=== PATIENT | male | born 1990 | race Caucasian/White ===

== ENCOUNTER 2018-09-19 13:40 | Emergency (ER) | payer OTHER ==
--- NOTE | 2018-09-19 14:30 | UC ---
General HPI - HPI Summary HPI Summary: is provider in between providers has appointment for 10/20/[address] Kathe lópez checked #[id number] confirmed dose and no aberrant entries. - History of Current Complaint Chief Complaint: UCMedRefill Stated Complaint: PRESCRIPTION REFILL Time Seen by Provider: 09/19/18 13:48 Hx Obtained From: Patient Onset/Duration: Gradual Onset Current Severity: None Pain Intensity: 0 - Allergy/Home Medications Allergies/Adverse Reactions: Allergies Allergy/AdvReac Type Severity Reaction Status Date / Time No Known Allergies Allergy Verified 09/19/18 14:16 Home Medications: Home Medications LORazepam TAB(*) [Ativan 0.5 MG TAB (*)] 1 tab PO ONCE PRN 09/19/18 [History Confirmed 09/19/18] Methylphenidate TAB* [Ritalin TAB*] 1 tab PO ONCE PRN 09/19/18 [History Confirmed 09/19/18] PMH/Surg Hx/FS Hx/Imm Hx Previously Healthy: Yes Psychological History: Anxiety, Other Other Psychological History: Adhd - Surgical History Surgical History: None - Family History Known Family History: Positive: None - Social History Occupation: Student Lives: Alone Alcohol Use: Rare Substance Use Type: Prescribed Smoking Status (MU): Never Smoked Tobacco Review of Systems All Other Systems Reviewed And Are Negative: Yes Constitutional: Positive: Negative Skin: Positive: Negative Eyes: Positive: Negative ENT: Positive: Negative Respiratory: Positive: Negative Cardiovascular: Positive: Negative Gastrointestinal: Positive: Negative Genitourinary: Positive: Negative Motor: Positive: Negative Neurovascular: Positive: Negative Musculoskeletal: Positive: Negative Neurological: Positive: Negative Psychological: Positive: Negative Is Patient Immunocompromised?: No Physical Exam Triage Information Reviewed: Yes Appearance: Well-Appearing, No Pain Distress, Well-Nourished Vital Signs: Initial Vital Signs Temp 97.9 F 09/19/18 14:09 Pulse 75 09/19/18 14:09 Resp 18 09/19/18 14:09 BP 105/65 09/19/18 14:09 Pulse Ox 100 09/19/18 14:09 Vital Signs Reviewed: Yes Eye Exam: Normal Eyes: Positive: Conjunctiva Clear ENT Exam: Normal ENT: Positive: Normal ENT inspection, Hearing grossly normal. Negative: Trismus , Muffled voice, Hoarse voice Dental Exam: Normal Neck exam: Normal Neck: Positive: Supple, Nontender Respiratory Exam: Normal Respiratory: Positive: Chest non-tender, No respiratory distress, No accessory muscle use Cardiovascular Exam: Normal Cardiovascular: Positive: Pulses Normal, Brisk Capillary Refill Musculoskeletal Exam: Normal Musculoskeletal: Positive: Strength Intact, ROM Intact, No Edema Neurological Exam: Normal Neurological: Positive: Alert, Muscle Tone Normal Psychological Exam: Normal Psychological: Positive: Normal Response To Family Skin Exam: Normal Course/Dx - Course Course Of Treatment: meds refilled plan to follow with new MD as planned - Differential Dx - Multi-Symptom Provider Diagnoses: Med refill Discharge - Sign-Out/Discharge Documenting (check all that apply): Patient Departure All imaging exams completed and their final reports reviewed: No Studies - Discharge Plan Condition: Stable Disposition: HOME Prescriptions: Methylphenidate HCl [Methylphenidate ER] 1 tab PO DAILY 30 Days #30 tab.er.24 MDD 1 Sertraline HCl [Zoloft] 1 tab PO DAILY 30 Days #30 tablet Patient Education Materials: ADHD in Adults (ED) Referrals: Jarret BERNAL,Guido Goodwin [Medical Doctor] - - Billing Disposition and Condition Condition: STABLE Disposition: Home
== END 2018-09-19 14:30 | disposition home or self-care (01) ==
LOC: UCEAST 13:40
DX: Z76.0 Encounter for issue of repeat prescription (principal); F41.9 Anxiety disorder, unspecified; Z79.899 Other long term (current) drug therapy
CPT/HCPCS: 99202; G0463

== ENCOUNTER 2018-10-16 08:32 | Emergency (ER) | payer OTHER ==
[2018-10-16 08:43] VITALS: BP 137/75
--- NOTE | 2018-10-16 15:02 | UC ---
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 He reports that he had a pcp that filled his medications, but d/t insurance issue, he is no longer able to follow with this pcp. Seen at Urgent care last month, refill given. He has an appointment with new pcp Nov 27 but prescription ran out. Plans to travel to [facility] this upcoming week, then will be out of town for the winter vacation. Generally feels well. No fever / chills. No sob / cp / palpitations. No GI / issues. No rash. - History of Current Complaint Chief Complaint: UCMedRefill Stated Complaint: RX REFILL Time Seen by Provider: 10/16/18 09:28 Hx Obtained From: Patient Pain Intensity: 0 - Allergy/Home Medications Allergies/Adverse Reactions: Allergies Allergy/AdvReac Type Severity Reaction Status Date / Time No Known Allergies Allergy Verified 10/16/18 08:43 PMH/Surg Hx/FS Hx/Imm Hx Previously Healthy: Yes - see pmh - Surgical History Surgical History: Yes Surgery Procedure, Year, and Place: wisdom teeth - Family History Known Family History: Positive: None - Social History Alcohol Use: Rare Substance Use Type: Prescribed Smoking Status (MU): Never Smoked Tobacco Review of Systems All Other Systems Reviewed And Are Negative: Yes Constitutional: Positive: Negative Skin: Positive: Negative Eyes: Positive: Negative ENT: Positive: Negative Respiratory: Positive: Negative Cardiovascular: Positive: Negative Gastrointestinal: Positive: Negative Genitourinary: Positive: Negative Motor: Positive: Negative Neurovascular: Positive: Negative Musculoskeletal: Positive: Negative Neurological: Positive: Negative Psychological: Positive: Negative Is Patient Immunocompromised?: No Physical Exam Triage Information Reviewed: Yes Appearance: Well-Appearing, Well-Nourished - phys exam limited Vital Signs: Initial Vital Signs Temp 98.3 F 10/16/18 08:37 Pulse 71 10/16/18 08:37 Resp 18 10/16/18 08:37 BP 137/75 10/16/18 08:37 Pulse Ox 100 10/16/18 08:37 Vital Signs Reviewed: Yes Eye Exam: Normal ENT Exam: Normal Respiratory Exam: Normal - rr normal. no tachypnea, no dyspnea. Cardiovascular Exam: Normal - HR normal. Nondiaphoretic. Abdominal Exam: Normal - no c/o Abdomen Description: Positive: Nontender Musculoskeletal Exam: Normal - moves x 4 exct's Neurological Exam: Normal - grossly nonfocal, detailed exam not done Psychological Exam: Normal - conversing easily and appropriately Course/Dx - Course Course Of Treatment: I spoke with PCP office. They will see pt next week. D/w pt, he is concerned d/t upcoming travel plans. He called the office from here ( urgent care). They kindly will see him today. No prescriptions written from Urgent care. He will go to PCP office from urgent care. Expresses gratitude for care. Questions as posed answered to the best of my ability. - Diagnoses Provider Diagnosis: Medication refill Discharge - Sign-Out/Discharge Documenting (check all that apply): Patient Departure All imaging exams completed and their final reports reviewed: No Studies - Discharge Plan Condition: Stable Disposition: HOME Patient Education Materials: Medicine Refill (ED) Referrals: Hafsa Myles PA [Primary Care Provider] - Additional Instructions: Please go to your appointment this morning as scheduled. - Billing Disposition and Condition Condition: STABLE Disposition: Home
== END 2018-10-16 10:14 | disposition home or self-care (01) ==
LOC: UCEAST 08:32
DX: F41.9 Anxiety disorder, unspecified (principal); F90.9 Attention-deficit hyperactivity disorder, unspecified type
CPT/HCPCS: 99201; G0463